=== PATIENT | male | born 1980 | race Two or more races ===

== ENCOUNTER 2022-08-28 20:03 | Emergency (ER) | payer OTHER ==
[~2022-08-28] VITALS: Ht 190.5 cm; Wt 122.2 kg
[2022-08-28 20:16] VITALS: BP 109/60
[2022-08-28] MEDS ORDERED: TETANUS-DIPTH-ACEL PERTUSSIS 0.5ML SYR Tdap IM ONE (23:00)
== END 2022-08-28 23:10 | disposition home or self-care (01) ==
LOC: ER 20:03
DX: S61.412A Laceration without foreign body of left hand, initial encounter (principal); F17.210 Nicotine dependence, cigarettes, uncomplicated; Z88.6 Allergy status to analgesic agent; W26.0XXA Contact with knife, initial encounter; Y93.89 Activity, other specified; Y92.89 Other specified places as the place of occurrence of the external cause; Y99.8 Other external cause status
CPT/HCPCS: 12002; 90471; 90715